=== PATIENT | female | born 1985 | race Caucasian/White ===

== ENCOUNTER 2017-02-10 13:25 | Emergency (ER) | payer OTHER ==
[~2017-02-10] VITALS: Ht 175.3 cm; Wt 61.4 kg
[2017-02-10] MEDS ORDERED: PRENATAL PO (13:31)
[2017-02-10] MEDS ORDERED: PREN1TAB80 PO (13:46)
[2017-02-10 14:25] LABS: APPEARANCE,URINE CLOUDY (CLEAR); GLUCOSE, URINE (UA) NEGATIVE (NEGATIVE); KETONES,URINE NEGATIVE (NEGATIVE); LEUKOCYTE ESTERASE ,URINE SMALL (NEGATIVE); OCCULT BLOOD,URINE LARGE (NEGATIVE); PROTEIN,URINE POS 1+ (NEGATIVE)
[2017-02-10 14:41] LABS: ADD UA MICROSCOPIC YES; RBC,URINE >100 /HPF (0-2)
[2017-02-10 14:41] LABS: BASOPHILS % (AUTO) 0.3 % (0.0-2.0); EOSINOPHILS % (AUTO) 0.9 % (1.0-6.0); HEMATOCRIT 32.5 % (36-46); HEMOGLOBIN 11.1 g/dL (12.0-16.0); LYMPHOCYTES # (AUTO) 1.9 K/uL (1.0-4.8); LYMPHOCYTES % (AUTO) 17.3 % (22.0-44.0); MEAN CORPUSCULAR HEMOGLOBIN 31.9 pg (26.0-34.0); MEAN CORPUSCULAR HGB CONC 34.2 G/dL (31.0-37.0); MEAN CORPUSCULAR VOLUME 93 fL (80-100); MONOCYTES # (AUTO) 0.5 K/uL (0.1-1.0); MONOCYTES % (AUTO) 4.8 % (2.0-9.0); NEUTROPHILS # (AUTO) 8.5 K/uL (1.8-7.7); NEUTROPHILS % (AUTO) 76.7 % (40.0-70.0); PLATELET COUNT (AUTO) 225 K/uL (150-450); RED BLOOD CELL COUNT(AUTO) 3.48 MIL/uL (4.00-5.20); RED CELL DISTRIBUTION WIDTH 13.1 % (11.5-14.5)
[2017-02-10 14:42] LABS: SQUAMOUS EPITHELIAL CELL,UR Few /LPF (None Seen)
[2017-02-10 14:52] LABS: ANION GAP 8 mmol/L (8-16); CALCIUM, TOTAL 8.9 mg/dL (8.8-10.5); CARBON DIOXIDE 24 mmol/L (22-29); CHLORIDE 104 mmol/L (98-107); GLOMERULAR FILTR. RATE CALC > 60 mL/min (>60); POTASSIUM 3.7 mmol/L (3.5-5.1); SODIUM SERUM 136 mmol/L (136-145); UREA NITROGEN, BLOOD 13 mg/dL (7-18)
[2017-02-10 15:29] LABS: ALANINE AMINOTRANSFERASE 17 U/L (12-78); ASPARTATE AMINOTRANSFERASE 12 U/L (15-37); BILIRUBIN,TOTAL 0.2 mg/dL (0.1-1.0); TOTAL PROTEIN, SERUM 6.7 g/dL (6.4-8.2)
[2017-02-10 17:51] VITALS: BP 95/60
[2017-02-10] MEDS ORDERED: VITA1CAP10 PO (18:42)
[2017-02-12] MEDS ORDERED: DOXY25TA29 PO (07:45)
== END 2017-02-10 18:06 | disposition home or self-care (01) ==
LOC: EMS 13:28
DX: O69.4XX0 Labor and delivery complicated by vasa previa, not applicable or unspecified (principal); Z3A.16 16 weeks gestation of pregnancy
CPT/HCPCS: 76801; 76817; 86901; 99285

== ENCOUNTER 2017-02-10 17:55 | Observation (INO) | payer OTHER ==
[~2017-02-10] VITALS: Ht 175.3 cm; Wt 63.0 kg
[~2017-02-10 17:55] MED LIST: PREN1TAB80 PO; PRENATAL PO
[2017-02-10] MEDS ORDERED: VITA1CAP10 PO (18:42)
[2017-02-10 19:46] VITALS: BP 99/58
[2017-02-12] MEDS ORDERED: DOXY25TA29 PO (07:45)
== END 2017-02-10 21:10 | disposition home or self-care (01) ==
LOC: 4S 17:55
PROVIDERS: ADMIT Obstetrics & Gynecology; ATTEND Obstetrics & Gynecology
DX: O20.9 Hemorrhage in early pregnancy, unspecified (principal); Z3A.17 17 weeks gestation of pregnancy
CPT/HCPCS: 59025; G0378